=== PATIENT | male | born 1950 | race African-American/Black ===

== ENCOUNTER → 2020-10-20 | Outpatient (CLI) | payer OTHER ==
--- NOTE | 2020-10-20 13:52 | 2DMMODE ---
[place] [address] 2 D/M-MODE ECHOCARDIOGRAM Name: CRUZCED Room: [facility] [place].#: [id number] Admission: 10/20/20 Attend Phys: Physician not on s Discharge: Date of : 54 Date of Service: 10/20/20 1352 Report #: [id number] THIS REPORT FOR: cc: YAHIR OLIVIER MD Physician not on staff Rafael Greer MD [facility] ~ APPROVED REPORT Study performed: 10/20/2020 12:39:54 EXAM: Comprehensive 2D, Doppler, and color-flow Echocardiogram Patient Location: Out-Patient BSA: 2.00 HR: 82 bpm BP: 130/75 mmHg Other Information Study Quality: Good Indications Congestive Heart Failure 2D Dimensions IVSd: 12.30 (7-11mm) LVOT Diam: 20.71 (18-24mm) LVDd: 37.80 mm PWd: 9.38 (7-11mm) Ascending Ao: 28.69 (22-36mm) LVDs: 26.80 (25-40mm) Aortic Root: 29.84 mm Volumes Left Atrial Volume (Systole) LA ESV Index: 11.00 mL/m2 Aortic Valve AoV Peak Henry.: 1.12 m/s AO Peak Gr.: 5.06 mmHg LVOT Max P.14 mmHg AO Mean Gr.: 2.98 mmHg LVOT Mean P.36 mmHg LVOT Max V: 0.89 m/s AO V2 VTI: 18.68 cm LVOT Mean V: 0.53 m/s BERRY (VTI): 2.84 cm2 LVOT V1 VTI: 15.73 cm Mitral Valve E/A Ratio: 0.67 [place] [address] 2 D/M-MODE ECHOCARDIOGRAM Name: CED CRUZ Room: [facility]#: [id number] Admission: 10/20/20 Attend Phys: Physician not on s Discharge: Date of : 54 Date of Service: 10/20/20 1352 Report #: [id number] MV Decel. Time: 250.70 ms MV E Max Henry.: 0.54 m/s MV PHT: 72.70 ms MVA (PHT): 3.03 cm2 TDI E/Lateral E': 10.80 E/Medial E': 9.00 Medial E' Henry.: 0.06 m/s Lateral E' Henry.: 0.05 m/s Pulmonary Valve PV Peak Henry.: 1.14 m/s PV Peak Gr.: 5.20 mmHg Left Ventricle The left ventricle is normal size. There is normal LV segmental wall motion. There is normal left ventricular wall thickness. Left ventricular systolic function is normal. The left ventricular ejection fraction is within the normal range. LVEF is 50-55%. Grade I - abnormal relaxation pattern. Right Ventricle The right ventricle is normal size. The right ventricular systolic function is normal. Atria The left atrium size is normal. The right atrium size is normal. Aortic Valve The aortic valve is normal in structure. No aortic regurgitation is present. There is no aortic valvular stenosis. Mitral Valve The mitral valve is normal in structure. There is no mitral valve regurgitation noted. No evidence of mitral valve stenosis. Tricuspid Valve The tricuspid valve is normal in structure. There is trace tricuspid valve regurgitation noted. Pulmonic Valve The pulmonary valve is normal in structure. Mild pulmonic regurgitation. Great Vessels The aortic root is normal in size. IVC [place] [address] 2 D/M-MODE ECHOCARDIOGRAM Name: CED CRUZ Room: [facility] Dharmesh#: [id number] Admission: 10/20/20 Attend Phys: Physician not on s Discharge: Date of : 54 Date of Service: 10/20/20 1352 Report #: [id number] collapses >50% with inspiration. Pericardium There is no pericardial effusion. <Conclusion> Left ventricular systolic function is normal. The left ventricular ejection fraction is within the normal range. <ELECTRONICALLY SIGNED> By: Rafael Greer MD, [facility] 10/20/20 1352 1352 135 Rafael Greer MD, [facility] /INF
== END ==
LOC: M.CRD 12:47
DX: I37.1 Nonrheumatic pulmonary valve insufficiency (principal); I50.9 Heart failure, unspecified; R55 Syncope and collapse